=== PATIENT | female | born 1965 | race Caucasian/White ===

== ENCOUNTER → 2016-08-09 | Outpatient (CLI) | payer MEDICARE ==
--- NOTE | 2016-08-10 09:57 | ECHOF ---
Referral Reason:I10 htn, I38 Heart Valve Disorder, Z86.79 Hx Endoc MEASUREMENTS -------- HEIGHT: 157.5 cm WEIGHT: 85.7 kg BP: 169/79 RVIDd: 3.0 cm (< 3.3) IVSd: 1.2 cm (0.6 - 1.1) LVIDd: 4.1 cm (3.9 - 5.3) LVPWd: 1.2 cm (0.6 - 1.1) IVSs: 1.8 cm LVIDs: 2.8 cm LVPWs: 1.9 cm LA Diam: 4.2 cm (2.7 - 3.8) LAESV Index (A-L): 23.57 ml/m Ao Diam: 3.0 cm (2.0 - 3.7) AV Cusp: 1.9 cm (1.5 - 2.6) MV EXCURSION: 16.269 mm (> 18.000) MV EF SLOPE: 33 mm/s (70 - 150) EPSS: 0.2 cm MV E Madi: 1.17 m/s MV DecT: 292 ms MV A Madi: 1.39 m/s MV E/A Ratio: 0.84 FINDINGS -------- Sinus rhythm. This was a technically good study. The left ventricular size is normal. There is borderline concentric left ventricular hypertrophy. Overall left ventricular systolic function is normal with, an EF between 60 - 65 %. The right ventricle is normal in size. Normal LA size by volume 22+/-6 ml/m2. The right atrium is normal in size. The aortic valve is trileaflet and appears structurally normal. Moderate mitral annular calcification present. Mild mitral regurgitation is present. The tricuspid valve appears structurally normal. Trace/mild (physiologic) pulmonic regurgitation. The aortic root size is normal. Normal inferior vena cava with normal inspiratory collapse consistent with estimated right atrial pressure of 5 mmHg. There is no pericardial effusion. CONCLUSIONS -------- 1. Sinus rhythm. 2. Moderate mitral annular calcification present. 3. Mild mitral regurgitation is present. 4. The tricuspid valve appears structurally normal. 5. Trace/mild (physiologic) pulmonic regurgitation. 6. The aortic root size is normal. 7. Normal inferior vena cava with normal inspiratory collapse consistent with estimated right atrial pressure of 5 mmHg. 8. There is no pericardial effusion. 9. This was a technically good study. 10. The left ventricular size is normal. 11. There is borderline concentric left ventricular hypertrophy. 12. Overall left ventricular systolic function is normal with, an EF between 60 - 65 %. 13. The right ventricle is normal in size. 14. Normal LA size by volume 22+/-6 ml/m2. 15. The right atrium is normal in size. 16. The aortic valve is trileaflet and appears structurally normal. TECHNICAL SUPPORT COORDINATOR: Holly Jennings RDCS
== END | disposition home or self-care (01) ==
LOC: RADECHMAIN 10:53
PROVIDERS: ATTEND Family Medicine
DX: I34.0 Nonrheumatic mitral (valve) insufficiency (principal); I37.1 Nonrheumatic pulmonary valve insufficiency; I10 Essential (primary) hypertension; E78.5 Hyperlipidemia, unspecified; E05.00 Thyrotoxicosis with diffuse goiter without thyrotoxic crisis or storm; I38 Endocarditis, valve unspecified; Z86.79 Personal history of other diseases of the circulatory system; Z86.73 Personal history of transient ischemic attack (TIA), and cerebral infarction without residual deficits
CPT/HCPCS: 93005; 93306

== ENCOUNTER → 2017-08-06 | Outpatient (CLI) | payer MEDICARE ==
--- NOTE | 2017-08-06 13:12 | US ---
EXAMINATION TYPE: US venous doppler duplex LE LT DATE OF EXAM: 08/06/2017 1:00 PM COMPARISON: NONE CLINICAL HISTORY: PAIN IN LT KNEE M25.562,M79.89 SWELLING OF LIMB. SIDE PERFORMED: Left TECHNIQUE: The lower extremity deep venous system is examined utilizing real time linear array sonog cem with graded compression, doppler sonography and color-flow sonography. VESSELS IMAGED: External Iliac Vein (EIV) Common Femoral Vein Deep Femoral Vein Greater Saphenous Vein * Femoral Vein Popliteal Vein Small Saphenous Vein * Proximal Calf Veins (* superficial vessels) Preliminary results phoned to Autumn at [facility] at 13:00. Grayscale, color doppler, spectral doppler imaging performed of the deep veins of the lower extremity . There is normal flow, compressibility, vascular waveforms. IMPRESSION: Left Leg: Negative for DVT
== END | disposition home or self-care (01) ==
LOC: RADUSWWP 12:12
PROVIDERS: ATTEND Family Medicine
DX: M25.562 Pain in left knee (principal); M79.89 Other specified soft tissue disorders

== ENCOUNTER 2017-10-21 22:23 | Emergency (ER) | payer MEDICARE ==
--- NOTE | 2017-10-21 22:56 | XR ---
EXAMINATION TYPE: XR chest 2V DATE OF EXAM: 10/21/2017 COMPARISON: NONE HISTORY: Rib pain TECHNIQUE: Frontal and lateral views of the chest are obtained. FINDINGS: Heart and mediastinum are normal. Lungs are clear. Diaphragm is normal. Bony thorax is int act. IMPRESSION: Normal chest.
[2017-10-22 00:43] LABS: HCT 42.1 % (34.0-46.0); HGB 14.4 gm/dL (11.4-16.0); MCH 31.1 pg (25.0-35.0); MCHC 34.3 g/dL (31.0-37.0); MCV 90.7 fL (80.0-100.0); Mean Platelet Volume 7.6; Platelet Count 237 k/uL (150-450); RBC 4.64 m/uL (3.80-5.40); RDW 12.4 % (11.5-15.5); WBC 11.2 k/uL (3.8-10.6)
[2017-10-22 00:51] LABS: Partial Thromboplastin Time 23.2 sec (22.0-30.0); Prothrombin Time 9.9 sec (9.0-12.0)
[2017-10-22 00:53] LABS: ALT 27 U/L (9-52); AST 15 U/L (14-36); Albumin 4.2 g/dL (3.5-5.0); Alkaline Phosphatase 96 U/L (38-126); Amylase 62 U/L (30-110); Anion Gap 12 mmol/L; Blood Urea Nitrogen 13 mg/dL (7-17); Calcium 9.9 mg/dL (8.4-10.2); Carbon Dioxide 23 mmol/L (22-30); Chloride 105 mmol/L (98-107); Glucose 103 mg/dL (74-99); Lipase 297 U/L (23-300); Magnesium 1.8 mg/dL (1.6-2.3); Potassium 4.2 mmol/L (3.5-5.1); Sodium 140 mmol/L (137-145); Total Bilirubin 0.7 mg/dL (0.2-1.3); Total Protein 6.9 g/dL (6.3-8.2)
[2017-10-22 01:02] LABS: Creatine Kinase 62 U/L (30-135)
[2017-10-22 01:14] LABS: Creatine Kinase MB 0.7 ng/mL (0.0-2.4); Troponin I <0.012 ng/mL (0.000-0.034)
[2017-10-22] MEDS ORDERED: MORPHINE SULFATE 4 MG/0.8 ML SYRINGE (INJ) IVP STA (01:24)
[2017-10-22] MEDS ORDERED: ONDANSETRON 4 MG/2 ML VIAL IVP STA (01:24)
--- NOTE | 2017-10-22 01:40 | XR ---
EXAMINATION TYPE: XR KUB DATE OF EXAM: 10/22/2017 COMPARISON: NONE HISTORY: Rib pain TECHNIQUE: 2 views FINDINGS: There is no sign of intestinal obstruction or pneumoperitoneum. Fecal pattern is normal. Catia ng bases are clear. Costophrenic angles are clear. There are no pathologic calcifications over the ki dneys. There are clips from cholecystectomy. The lower ribs appear intact. IMPRESSION: Nonacute abdomen.
--- NOTE | 2017-10-22 02:09 | ED ---
General Adult HPI - General Chief complaint: Chest Pain Stated complaint: rib & back pain Time Seen by Provider: 10/22/17 01:11 Source: patient Mode of arrival: ambulatory Limitations: no limitations - History of Present Illness Initial comments: 52-year-old female patient presents to the emergency permit today for complaints of bilateral rib pain mostly on the left side, rib spasming, and upper abdominal discomfort. States that the pain radiates into her back. Patient states this is causing her to be short of breath especially when the spasms come on. Patient denies any nausea or vomiting however states that the pain does worsen when she eats. Patient states whenever she has a meal she sees swelling to the upper abdomen as well. Patient denies any constipation or diarrhea. She denies any fever or chills. Patient denies any sweats with this. Patient states that one week ago she was moving, states that she was holding a box and then twisted awkwardly when she was going into the house. States that the symptoms started the next day. Patient denies any history of similar symptoms. She denies any fall or rib injury. Patient denies any recent rash, fever, chills, numbness, tingling, dizziness, weakness, hematuria, dysuria , urinary urgency, urinary frequency, headache, visual changes, or any other complaints. - Related Data Previous Rx's Medication Instructions Recorded Cyclobenzaprine [Flexeril] 10 mg PO TID #15 tab 10/22/17 Hydrocodone/Acetaminophen [[place] 1 tab PO Q6HR PRN #12 tab 10/22/17 5-325] Allergies Allergy/AdvReac Type Severity Reaction Status Date / Time alendronate sodium AdvReac Nausea & Verified 10/21/17 22:35 [From Fosamax] Vomiting Review of Systems ROS Statement: Those systems with pertinent positive or pertinent negative responses have been documented in the HPI. ROS Other: All systems not noted in ROS Statement are negative. Past Medical History Past Medical History: CVA/TIA, Hypertension, Osteoarthritis (OA) Additional Past Medical History / Comment(s): broken back History of Any Multi-Drug Resistant Organisms: None Reported Past Surgical History: Cholecystectomy Past Psychological History: No Psychological Hx Reported Smoking Status: Current every day smoker Past Alcohol Use History: None Reported Past Drug Use History: None Reported General Exam Limitations: no limitations General appearance: alert, in no apparent distress, other (This is a well- developed, well-nourished adult female patient in mild distress related to pain. Vital signs are 97.3F, pulse 88, respirations 18, blood pressure 155/90 , pulse ox 98% on room air.) Eye exam: Present: normal appearance, PERRL, EOMI. Absent: scleral icterus, conjunctival injection, periorbital swelling ENT exam: Present: normal exam, normal oropharynx, mucous membranes moist Respiratory exam: Present: normal lung sounds bilaterally, chest wall tenderness (Left chest wall tenderness). Absent: respiratory distress, wheezes , rales, rhonchi, stridor Cardiovascular Exam: Present: regular rate, normal rhythm, normal heart sounds. Absent: systolic murmur, diastolic murmur, rubs, gallop, clicks GI/Abdominal exam: Present: soft, distended (Upper abdominal distention), tenderness (Midepigastric tenderness), normal bowel sounds. Absent: guarding, rebound, rigid Neurological exam: Present: alert, oriented X3, CN II-XII intact Psychiatric exam: Present: normal affect, normal mood Skin exam: Present: warm, dry, intact, normal color. Absent: rash Course Vital Signs 10/21/17 10/22/17 10/22/17 22:29 00:20 02:34 Temperature 97.3 F L 98.1 F Pulse Rate 88 70 Respiratory 18 20 18 Rate Blood Pressure 155/90 152/70 O2 Sat by Pulse 98 96 Oximetry 10/22/17 03:37 Temperature Pulse Rate 77 Respiratory 18 Rate Blood Pressure 168/79 O2 Sat by Pulse 95 Oximetry EKG Findings - EKG Comments: EKG Findings:: EKG obtained at 2254 shows normal sinus rhythm with a ventricular rate of 85, GA interval 146, QRS duration 80, QT 380, QTC 452. No evidence of ST elevation or depression. Medical Decision Making - Medical Decision Making 52-year-old female patient presents to the emergency department today for evaluation of bilateral rib pain and back pain. Physical examination reveals anterior and posterior chest wall tenderness. Labs reviewed and are unremarkable. Patient does have significant increase in pain with movement. X- ray of the chest showed no acute cardiopulmonary process. KUB x-ray of the abdomen showed no acute abnormalities. EKG showed normal sinus rhythm. Patient has been moving recently and lifting a lot of heavy objects. Patient states the pain feels like spasms. I do believe after negative workup that patient is experiencing musculoskeletal pain. Will give prescription for [place] and Flexeril. She is instructed take anti-inflammatory pain medication. She is instructed to return here immediately for any new, worsening, or concerning symptoms. She is instructed to follow-up with her primary care physician for recheck as soon as possible. She verbalizes understanding and agrees with this plan. - Lab Data Result diagrams: 10/22/17 00:32 10/22/17 00:32 Lab Results 10/22/17 10/22/17 10/22/17 Range/Units 00:32 00:32 00:32 WBC 11.2 H (3.8-10.6) k/uL RBC 4.64 (3.80-5.40) m/uL Hgb 14.4 (11.4-16.0) gm/dL Hct 42.1 (34.0-46.0) % MCV 90.7 (80.0-100.0) fL MCH 31.1 (25.0-35.0) pg MCHC 34.3 (31.0-37.0) g/dL RDW 12.4 (11.5-15.5) % Plt Count 237 (150-450) k/uL PT (9.0-12.0) sec INR (<1.2) APTT (22.0-30.0) sec D-Dimer (<0.60) mg/L FEU Sodium 140 (137-145) mmol/L Potassium 4.2 (3.5-5.1) mmol/L Chloride 105 (98-107) mmol/L Carbon Dioxide 23 (22-30) mmol/L Anion Gap 12 mmol/L BUN 13 (7-17) mg/dL Creatinine 0.80 (0.52-1.04) mg/dL Est GFR (CKD-EPI)AfAm >90 (>60 ml/min/1.73 sqM) Est GFR (CKD-EPI)NonAf 85 (>60 ml/min/1.73 sqM) Glucose 103 H (74-99) mg/dL Calcium 9.9 (8.4-10.2) mg/dL Magnesium 1.8 (1.6-2.3) mg/dL Total Bilirubin 0.7 (0.2-1.3) mg/dL AST 15 (14-36) U/L ALT 27 (9-52) U/L Alkaline Phosphatase 96 (38-126) U/L Total Creatine Kinase 62 (30-135) U/L CK-MB (CK-2) 0.7 (0.0-2.4) ng/mL CK-MB (CK-2) Rel Index 1.1 Troponin I <0.012 (0.000-0.034) ng/mL Total Protein 6.9 (6.3-8.2) g/dL Albumin 4.2 (3.5-5.0) g/dL Amylase 62 (30-110) U/L Lipase 297 (23-300) U/L 10/22/17 10/22/17 Range/Units 00:32 00:32 WBC (3.8-10.6) k/uL RBC (3.80-5.40) m/uL Hgb (11.4-16.0) gm/dL Hct (34.0-46.0) % MCV (80.0-100.0) fL MCH (25.0-35.0) pg MCHC (31.0-37.0) g/dL RDW (11.5-15.5) % Plt Count (150-450) k/uL PT 9.9 (9.0-12.0) sec INR 1.0 (<1.2) APTT 23.2 (22.0-30.0) sec D-Dimer 0.32 (<0.60) mg/L FEU Sodium (137-145) mmol/L Potassium (3.5-5.1) mmol/L Chloride (98-107) mmol/L Carbon Dioxide (22-30) mmol/L Anion Gap mmol/L BUN (7-17) mg/dL Creatinine (0.52-1.04) mg/dL Est GFR (CKD-EPI)AfAm (>60 ml/min/1.73 sqM) Est GFR (CKD-EPI)NonAf (>60 ml/min/1.73 sqM) Glucose (74-99) mg/dL Calcium (8.4-10.2) mg/dL Magnesium (1.6-2.3) mg/dL Total Bilirubin (0.2-1.3) mg/dL AST (14-36) U/L ALT (9-52) U/L Alkaline Phosphatase (38-126) U/L Total Creatine Kinase (30-135) U/L CK-MB (CK-2) (0.0-2.4) ng/mL CK-MB (CK-2) Rel Index Troponin I (0.000-0.034) ng/mL Total Protein (6.3-8.2) g/dL Albumin (3.5-5.0) g/dL Amylase (30-110) U/L Lipase (23-300) U/L - Radiology Data Radiology results: report reviewed, image reviewed Two-view x-ray of the abdomen shows no sign of intestinal obstruction or pneumoperitoneum. Fecal pattern is normal. Lung bases are clear. Costophrenic angles are clear. There are no pathologic calcifications over the kidneys. There are clips from cholecystectomy. The lower ribs appear intact. Impression by Dr. Pack shows nonacute abdomen. Two-view x-ray of the chest shows heart and mediastinum are normal. Lungs are clear. Diaphragm is normal. Bony thorax is intact. Impression by Dr. Pack shows normal chest. Disposition Clinical Impression: Rib pain, Back pain, Muscle spasm Disposition: HOME SELF-CARE Condition: Good Instructions: Muscle Spasm (ED), Back Pain (ED) Additional Instructions: Apply warm moist heat to the bilateral ribs. Take anti-inflammatory pain medication in addition to prescriptions. Perform coughing and deep breathing exercises every hour. Follow-up with your primary care physician for recheck in 1-2 days. Return here immediately for any new, worsening, or concerning symptoms. Prescriptions: Cyclobenzaprine [Flexeril] 10 mg PO TID #15 tab Hydrocodone/Acetaminophen [[place] 5-325] 1 tab PO Q6HR PRN #12 tab PRN Reason: Pain Is patient prescribed a controlled substance at d/c from ED?: Yes When asked, does pt state using other controlled substances?: No Referrals: Emma Mattson MD [Primary Care Provider] - 1-2 days Time of Disposition: 03:58
[2017-10-22] MEDS ORDERED: MORPHINE SULFATE 4 MG/ML SYRINGE IVP STA (02:26)
[2017-10-22 02:34] VITALS: RESP 18
[2017-10-22] MEDS ORDERED: DIAZEPAM 5 MG/ML 2 ML INJ IVP STA (03:17)
[2017-10-22 04:54] VITALS: BP 132/62; PULSE 67; TEMP 97.3
== END 2017-10-22 04:46 | disposition home or self-care (01) ==
LOC: EC 22:23
DX: M62.830 Muscle spasm of back (principal); M62.838 Other muscle spasm; R14.0 Abdominal distension (gaseous); F17.200 Nicotine dependence, unspecified, uncomplicated; Z88.8 Allergy status to other drugs, medicaments and biological substances; Z90.49 Acquired absence of other specified parts of digestive tract; Z53.8 Procedure and treatment not carried out for other reasons
CPT/HCPCS: 36415; 93005; 85379; 80053; 82150; 82550; 82553; 83690; 83735; 84484; 85027; 85610; 85730; 71046; 74018; 99285; 96374; 96375 ×2; J2270; J3360; J2405

== ENCOUNTER → 2018-12-30 | Outpatient (CLI) | payer MEDICARE ==
--- NOTE | 2018-12-31 10:02 | MM ---
Reason for exam: screening (asymptomatic). Last mammogram was performed 3 years and 2 months ago. History: Patient is postmenopausal. Pre-pectoral saline implants in both breasts, September 02, 2013. Physical Findings: A clinical breast exam by your physician is recommended on an annual basis and results should be correlated with mammographic findings. MG Screening Mammo Implant/CAD Bilateral CC, MLO, and ID view(s) were taken. Prior study comparison: November 14, 2015, bilateral MG screening mammo implant/CAD. There is a 3mm group of central lower right breast calcifications at posterior depth. No suspicious abnormality on the left. Bilateral prepectoral saline implants with contour deformaity bilaterally that is chronic. ASSESSMENT: Incomplete: need additional imaging evaluation, BI-RAD 0 RECOMMENDATION: Special view mammogram of the right breast. [facility] will attempt to contact patient to return for supplemental views.
== END | disposition home or self-care (01) ==
LOC: RADMAMWWP 10:02
PROVIDERS: ATTEND Family Medicine
DX: Z12.31 Encounter for screening mammogram for malignant neoplasm of breast (principal)
CPT/HCPCS: 77067

== ENCOUNTER → 2019-01-08 | Outpatient (CLI) | payer MEDICARE ==
--- NOTE | 2019-01-09 10:08 | MM ---
Reason for exam: additional evaluation requested from abnormal screening. Last mammogram was performed less than 1 month ago. History: Patient is postmenopausal. Pre-pectoral saline implants in both breasts, September 02, 2013. Physical Findings: Nurse did not find any significant physical abnormalities on exam. MG Work Up Mamm w CAD RT CC with magnification, ML with magnification, and ML view(s) were taken of the right breast. Prior study comparison: December 30, 2018, bilateral MG screening mammo implant/CAD. November 14, 2015, bilateral MG screening mammo implant/CAD. There are scattered fibroglandular densities. Finding: There are coarse heterogeneous, grouped/clustered calcifications in the lower outer quadrant, posterior position of the right breast consistent with persists on additional views. These results were verbally communicated with the patient and result sheet given to the patient on 01/08/19. ASSESSMENT: Suspicious, BI-RAD 4 RECOMMENDATION: Stereotactic core biopsy of the right breast. Called Dr. Mattson with mammographic findings and has scheduled an appointment for the patient for 01/28/19 at 3:[address] Moore. Biopsy scheduled for 01/22/19 at 8:00. PRELIMINARY REPORT CALLED AND FAXED TO DR. MOORE ON 01/09/19.
== END | disposition home or self-care (01) ==
LOC: RADMAMWWP 10:10
PROVIDERS: ATTEND Family Medicine
DX: R92.8 Other abnormal and inconclusive findings on diagnostic imaging of breast (principal)
CPT/HCPCS: 77065

== ENCOUNTER 2019-01-22 07:06 | Day surgery (SDC) | payer MEDICARE ==
[2019-01-22 07:46] VITALS: TEMP 97.8; BMI 38.2
[2019-01-22 09:33] VITALS: BP 126/75; PULSE 67; RESP 12
--- NOTE | 2019-01-22 09:39 | P.OP ---
Date of Procedure: 01/22/19 Preoperative Diagnosis: Calcifications of concern right breast Postoperative Diagnosis: Same Procedure(s) Performed: Stereotactic core biopsy right breast Anesthesia: local Surgeon: Zulma Moore Estimated Blood Loss (ml): 0 Pathology: other (Breast tissue) Condition: stable Disposition: same day Indications for Procedure: calcifications of concern right breast lower outer quadrant Operative Findings: Radiograph of the specimen reveals calcifications Description of Procedure: The patient was seen and examined. She was noted to have in the right breast in the lower outer quadrant an area of calcification of concern. It was recommended she undergo biopsy of this area. Stereotactic core biopsy was recommended and risks and benefits were discussed with the patient. The patient wished to proceed. The patient was taken to the stereotactic core room and positioned on the table. A sas sql developer film was obtained and the area of concern was identified. The area was targeted. The breast was prepped. A approach cc from below was utilized. Area was anesthetized using 20 mL of 1% lidocaine. A 19-gauge vacuum-assisted core rotating biopsy needle was inserted to the correct position. The needle was fired and films were obtained. It appeared that the lesion was slightly deeper and the needle was advanced. Core biopsies were then obtained. The lesion was not noted in the specimen and additional core biopsies were obtained. The lesion was noted to be present in the additional core biopsy specimen. A secure marked top. Enrique was placed. The patient tolerated procedure in stable condition. The specimen was sent to pathology. The patient will follow with Dr. Shook next week. Of importance is the fact that this patient has a saline implant and we were able to do the procedure with no injury to the implant.
--- NOTE | 2019-01-22 11:17 | MM ---
EXAMINATION TYPE: MG stereo VAD BX RT DATE OF EXAM: 01/22/2019 COMPARISON: Recent diagnostic mammogram of the right breast CLINICAL HISTORY: Indeterminate right breast calcifications for which stereotactic guided biopsy was recommended. TECHNIQUE: Stereotactic guided core biopsy of right breast. FINDINGS: The procedure of stereotactic guided core biopsy was explained to the patient. Benefits, alternatives, and risks were discussed. An informed consent was then obtained. Preprocedural timeout was performed. The safest pathway for biopsy was chosen to approach the 3 mm group of calcifications in the lower outer quadrant. Safest pathway was CC from below approach. I performed the localization, then surgeon, Dr. Boone Martinez performed the remainder of the procedure. A vacuum assisted biopsy gun was used to obtain multiple core samples. The patient tolerated the procedure well without any immediate complication. The patient was kept in the radiology department for short stay after the procedure and then discharged home in stable condition. Targeted calcifications are identified in specimen mammogram. Post biopsy mammogram shows the marker to appear in satisfactory position relative to the targeted area of concern on the preprocedure images. IMPRESSION: SUCCESSFUL, UNCOMPLICATED STEREOTACTIC GUIDED CORE BIOPSY OF A 3 MM GROUP OF LOW SUSPICION CALCIFICATIONS IN THE LOWER OUTER QUADRANT OF THE RIGHT BREAST, FULL PATHOLOGY RESULTS TO FOLLOW. Pathology Results: Benign RIGHT BREAST, CORE BIOPSY: Scar with fat necrosis, calcifications, hemosiderin laden histocytes and mild chronic inflammation. Negative for malignancy. Recommendation Follow up mammogram of the right breast in 6 months. MTDD
== END 2019-01-22 09:23 | disposition home or self-care (01) ==
LOC: RADMAMWWP 07:06
PROVIDERS: ATTEND Surgery
DX: N64.1 Fat necrosis of breast (principal); R92.0 Mammographic microcalcification found on diagnostic imaging of breast; R92.8 Other abnormal and inconclusive findings on diagnostic imaging of breast; L81.8 Other specified disorders of pigmentation; N61.0 Mastitis without abscess; Z88.8 Allergy status to other drugs, medicaments and biological substances
CPT/HCPCS: 88305; 19081; A4648; J2001

== ENCOUNTER → 2019-01-28 | Outpatient (CLI) | payer MEDICARE ==
[2019-01-28 16:00] VITALS: BP 160/96; PULSE 92; RESP 18; TEMP 98.6; BMI 38.2
--- NOTE | 2019-01-28 16:22 | P.GSHP ---
History of Present Illness H&P Date: 01/28/19 Chief Complaint: Stereotactic core biopsy done on 01-22-19 Nichole is a 53-year-old white female status post stero brsat biopsy on 81 of the right breast. Pathology revealed scar with fat necrosis, calcifications, hemosiderin laden histiocytes and now chronic inflammation. This was negative for cancer. This was done as a result [place] [id number]. The mammogram was of the right breast which revealed coarse heterogeneous group calcifications in the lower outer quadrant posterior position of the breast stereotactic core biopsy was recommended. [place] [address] and no abnormalities in the left breast were identified. The patient has prepectoral breast implants. These were placed about August of 2013. The patient does not feel any lumps in her breast. Family History: mother: cervical Hormonal History: menarche: 16 , breast fed: yes, first born at 28 menopause: irregular last period 6 months ago BCP: none hormones: clomid to get Surgical history: 1. gallbladder 2. amputation of toe 3. tonsil 4. breast implants Medical History: 1. vegatation in heart 2. stroke 2007, numbness in the left arm, difficulty with reading 3. broke back Social History: smoke: started 2011 10 cigarettes/day alcohol: none drugs: none - Constitutional Constitutional: Denies chills, Denies fever - EENT Comment: left eye decreased vision Eyes: denies pain Ears: deny: decreased hearing, tinnitus Ears, nose, mouth and throat: Denies headache, Denies sore throat - Breasts Breasts: bilateral: as per HPI - Cardiovascular Comment: vegatation on heart related to rheumatic fever led to [facility] - Respiratory Comment: smoker Respiratory: Denies cough, Denies 7 - Gastrointestinal Gastrointestinal: Denies abdominal pain, Denies diarrhea, Denies nausea, Denies vomiting - Genitourinary (Female) Genitourinary: Denies dysuria, Denies hematuria - Menstruation Comment: nikkie-menopausal - Musculoskeletal Comment: osteoporosis Musculoskeletal: Denies myalgias - Integumentary Integumentary: Denies pruritus, Denies rash - Neurological Comment: status post CVA, decreased vision on the left - Psychiatric Psychiatric: Reports anxiety - Endocrine Comment: graves disease - Hematologic/Lymphatic Comment: none - Allergic/Immunologic Allergic/Immunologic: Reports seasonal allergies Past Medical History Past Medical History: CVA/TIA, Hypertension, Osteoarthritis (OA), Thyroid Disorder Additional Past Medical History / Comment(s): broken back, graves disease, 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 Past Drug Use History: None Reported - Past Family History Mother Family Medical History: Cancer Additional Family Medical History / Comment(s): pts mother had either uterine or cervical cancer Medications and Allergies Home Medications Medication Instructions Recorded Confirmed Type Atorvastatin Calcium [Lipitor] 20 mg PO DAILY 01/12/19 01/28/19 History Quinapril HCl 40 mg PO DAILY 01/12/19 01/28/19 History tiZANidine HCL 4 mg PO DAILY 01/12/19 01/28/19 History guaiFENesin [Mucinex] 600 mg PO QID 01/22/19 01/28/19 History Allergies Allergy/AdvReac Type Severity Reaction Status Date / Time alendronate sodium AdvReac Severe Nausea & Verified 01/28/19 15:56 [From Fosamax] Vomiting Surgical - Exam Vital Signs Temp Pulse Resp BP Pulse Ox 98.6 F 92 18 160/96 95 01/28/19 15:57 01/28/19 15:57 01/28/19 15:57 01/28/19 15:57 01/28/19 15:57 BMI 38.2 - General well developed, well nourished, no distress - Eyes normal ocular movement - ENT no hearing loss, no congestion - Neck no masses, trachea midline - Respiratory normal respiratory effort, clear to auscultation - Cardiovascular Rhythm: regular Heart Sounds: normal: S1, S2 - Abdomen Abdomen: soft, non tender, no guarding, no rigid, no rebound - Integumentary normal turgor - Neurologic no disoriented, no combative - Musculoskeletal normal gait, normal posture - Psychiatric oriented to time, oriented to person, oriented to place, speech is normal, memory intact Breast exam: right breast: Circumareolar incision related to breast implant placement no dominant masses or nodules of concern fibrocystic changes Right axilla: No adenopathy of concern Left breast: Circumareolar incision related to breast implant placement and breast left, no dominant masses or nodules of concern, fibrocystic changes Results mammogram results reviewed Assessment and Plan Assessment: Impression: 1. vegatation in heart 2. stroke 2007, numbness in the left arm, difficulty with reading 3. broke back 4. Fibrocystic breast changes 5. Mother with cervical cancer. Plan: 1. Right breast mammogram in 6 months 2. Medical management of medical conditions CC: Srinivasan
== END | disposition home or self-care (01) ==
LOC: WWCWWP 15:38
PROVIDERS: ATTEND Surgery
DX: Z53.9 Procedure and treatment not carried out, unspecified reason (principal)

== ENCOUNTER → 2019-07-28 | Outpatient (CLI) | payer MEDICARE ==
--- NOTE | 2019-07-28 13:56 | MM ---
Reason for exam: follow-up at short interval from prior study. Last mammogram was performed 7 months ago. History: Patient is postmenopausal. Benign MG stereo VAD BX RT of the right breast, January 22, 2019. Pre-pectoral saline implants in both breasts, September 02, 2013. Physical Findings: Nurse did not find any significant physical abnormalities on exam. MG Diag Mamm Implant RT w CAD CC, MLO, and ID view(s) were taken of the right breast. Prior study comparison: January 08, 2019, right breast MG work up mamm w CAD RT. December 30, 2018, bilateral MG screening mammo implant/CAD. There are scattered fibroglandular densities. Previous mammotome biopsy in the right breast. Prepectoral saline implant. Stable inferior grouped calcifications. No significant new findings when compared with previous films. These results were verbally communicated with the patient and result sheet given to the patient on 07/28/19. ASSESSMENT: Benign, BI-RAD 2 RECOMMENDATION: Return to routine screening mammogram schedule for both breasts. Back on schedule.
== END | disposition home or self-care (01) ==
LOC: RADMAMWWP 12:44
PROVIDERS: ATTEND Surgery
DX: R92.8 Other abnormal and inconclusive findings on diagnostic imaging of breast (principal)
CPT/HCPCS: 77065